=== PATIENT | female | born 1955 | race Hispanic/Latino ===

== ENCOUNTER 2017-07-05 09:56 | Outpatient (CLI) | payer MEDICARE ==
--- NOTE | 2017-07-06 00:18 | XRay Report ---
FINAL REPORT EXAM: XR SHOULDER 2+V LT HISTORY: LEFT SHOULDER PAIN TECHNIQUE: Five views of the left shoulder were submitted. FINDINGS: There is no evidence of fracture or soft tissue injury. The AC joint and glenohumeral joint appear intact. IMPRESSION: Within normal limits.
== END 2017-07-05 09:57 | disposition home or self-care (01) ==
LOC: SPVIMAG 09:56
PROVIDERS: ATTEND Orthopaedic Surgery Sports Medicine
DX: M25.512 Pain in left shoulder (principal)